=== PATIENT | female | born 1935 | race African-American/Black ===

== ENCOUNTER 2018-08-16 08:31 | Inpatient (IN) | payer OTHER ==
[~2018-08-16] VITALS: Ht 152.4 cm; Wt 46.9 kg
[2018-08-16 08:34] VITALS: BP 146/61
[2018-08-16 09:13] LABS: HEMATOCRIT 28.5 % (37.0-47.0); HEMOGLOBIN 8.4 gm/dL (12.0-15.0); MCH 18.3 pg (26.0-34.0); MCHC 29.4 g/dL (28.0-37.0); MCV 62.1 fL (80.0-100.0); PLATELET COUNT 288 thou/uL (150-400); RBC 4.59 mil/uL (4.20-5.00); RDW 19.1 % (10.5-14.5); WBC 14.6 thou/uL (4.0-11.0)
[2018-08-16 09:16] LABS: URINE CLARITY CLEAR; URINE COLOR DK YELLOW; URINE GLUCOSE-RANDOM* NEGATIVE (Negative); URINE KETONES NEGATIVE (Negative); URINE PROTEIN (DIPSTICK) TRACE (Negative); URINE SPECIFIC GRAVITY 1.025 (1.005-1.035)
[2018-08-16 09:17] LABS: ICTOTEST (BILI CONFIRMATORY) Negative (Negative); URINE BILIRUBIN NEGATIVE (Negative); URINE BLOOD NEGATIVE (Negative); URINE LEUKOCYTES NEGATIVE (Negative); URINE NITRITE NEGATIVE (Negative)
[2018-08-16 09:18] LABS: CALCIUM 9.2 mg/dL (8.5-10.1); POTASSIUM 4.4 mmol/L (3.5-5.1)
[2018-08-16 09:23] LABS: ALBUMIN 1.9 g/dL (3.4-5.0); TOTAL BILIRUBIN 1.2 mg/dL (<0.1-1.0); TOTAL PROTEIN 6.5 g/dL (6.4-8.2)
--- NOTE | 2018-08-16 09:23 | NUR ---
LAB CALLED AND REPORTED LACTATE CRACKED, LAB CALLED TO REDRAW, PT HAS LITTLE VEINS AND SLOW DRAW
[2018-08-16] MEDS ORDERED: AMLODIPINE BESY10 MG PO (09:31)
[2018-08-16] MEDS ORDERED: LISINOPRIL20 MG PO (09:31)
[2018-08-16] MEDS ORDERED: XALATAN2.5 ML OPHTHALMIC (09:32)
[2018-08-16] MEDS ORDERED: IRON325 M1 PO (09:33)
[2018-08-16] MEDS ORDERED: TIMOLOL MALEATE5 M1 OPHTHALMIC (09:33)
[2018-08-16] MEDS ORDERED: ATENOLOL 50MG T50 M1 PO (09:33)
[2018-08-16] MEDS ORDERED: ERGOCALCIF50000 UNIT PO (09:34)
[2018-08-16 09:49] LABS: PHOSPHORUS 2.9 mg/dL (2.5-4.9); TROPONIN-I <0.06 ng/mL (<0.06)
[2018-08-16 09:55] LABS: MAGNESIUM 1.7 mg/dL (1.8-2.4)
[2018-08-16 09:59] LABS: ABSOLUTE NEUTROPHILS 13.4 thou/uL (1.4-8.2); ANISOCYTOSIS 1+; POIKILOCYTOSIS SLIGHT
[2018-08-16 10:00] LABS: HYPOCHROMASIA 1+; LARGE PLATELETS OCCASIONAL; MICROCYTES 2+; OVALOCYTES FEW
[2018-08-16 10:24] VITALS: BP 145/71
[2018-08-16 10:45] VITALS: BP 149/72
[2018-08-16 12:12] LABS: % SATURATION 11 % (20-39); IRON 10 ug/dL (50-170); TIBC 94 ug/dL (250-450)
[2018-08-16 13:20] VITALS: BP 156/73
[2018-08-16 19:47] VITALS: BP 153/79
[2018-08-17] VITALS (7 sets, daily range): BP systolic 126–156; BP diastolic 55–80
--- NOTE | 2018-08-17 05:14 | NUR ---
ASSUMED CARE AT 1900, ASSESSMENT COMPLETED. PT DENIED ANY PAIN, REPORTED MILD NAUSEA AFTER FINISHING MOST OF HER BOWEL PREP. HAVING COMPLETELY WATERY STOOL OVERNIGHT. NO RESP. DISTRESS. WAS UNABLE TO MAKE IT TO BSC FOR STOOLS, WAS CLEANED UP MULTIPLE TIMES. NPO SINCE MIDNIGHT FOR UPPER/LOWER GI TODAY. NO OTHER CONCERNS, WILL CONTINUE TO MONITOR.
[2018-08-17 05:49] LABS: BASOPHILS 0.1 % (0.0-2.0); HEMOGLOBIN 6.8 gm/dL (12.0-15.0); LYMPHOCYTES 14.3 % (24.0-44.0)
[2018-08-17 05:51] LABS: ABSOLUTE NEUTROPHILS 10.9 thou/uL (1.4-8.2); EOSINOPHILS 0.2 % (0.0-3.0); HEMATOCRIT 22.8 % (37.0-47.0); MCH 18.8 pg (26.0-34.0); MCHC 29.9 g/dL (28.0-37.0); MONOCYTES 5.3 % (1.0-8.0); PLATELET COUNT 247 thou/uL (150-400); POLYS 80.1 % (36.0-66.0); RBC 3.62 mil/uL (4.20-5.00); RDW 19.6 % (10.5-14.5); WBC 13.6 thou/uL (4.0-11.0)
[2018-08-17 06:02] LABS: ALBUMIN 1.4 g/dL (3.4-5.0); CALCIUM 8.7 mg/dL (8.5-10.1); CREATININE 0.7 mg/dL (0.6-1.0); MAGNESIUM 1.8 mg/dL (1.8-2.4); TOTAL BILIRUBIN 0.7 mg/dL (<0.1-1.0); TOTAL PROTEIN 5.8 g/dL (6.4-8.2)
[2018-08-17 06:03] LABS: POTASSIUM 3.1 mmol/L (3.5-5.1)
--- NOTE | 2018-08-17 07:56 | EKG ---
[address] [place] [address] ELECTROCARDIOGRAM REPORT Name: PETER VARELA Room #: 421-P ADM IN M.R.#: [id number] Admission: 08/16/18 Attend Phys: Kd Mast MD Discharge: Date of : 33 Report #: [id number] THIS REPORT FOR: //name// [facility] ED Test Date: 2018-08-16 Test Time: 09:06:35 Pat Name: PETER VARELA Department: Room: 421 Gender: F Automation Developer: KF : 1935 Requested By: Gilmer Anthony Order Number: [id number] MD: Tevin Hernandez Measurements Intervals Shoshone Rate: 85 P: 69 VA: 121 QRS: 79 QRSD: 80 T: 74 QT: 366 QTc: 436 Interpretive Statements Sinus rhythm Probable anteroseptal infarct, old No previous ECG available for comparison Electronically Signed On 08-17-2018 7:56:05 DRY WALL APPLICATOR by Tevin Hernandez [email or web address] <ELECTRONICALLY SIGNED> By: Tevin Hernandez MD 08/17/18 [phone] 5 Tevin Hernandez MD /RAMBO
[2018-08-17 14:41] LABS: HEMATOCRIT 25.1 % (37.0-47.0); HEMOGLOBIN 7.4 gm/dL (12.0-15.0)
--- NOTE | 2018-08-17 14:41 | NUR ---
ASSESSMENT-PT LIVES AT HOME WITH HER SISTER, SISTER'S DTR AND GRANDDTR. PT SAYS SHE WALKED ON HER OWN AND TOOK HER OWN SHOWER. THEY LIVE IN A 2 STORY HOME. SISTER DOES MOST OF THE HOUSEHOLD THINGS. PT SAYS SHE HAS NOT HAD ANY HH IN THE PAST. ALL [address] AWAITING THERAPY EVALS FOR [facility] HH SERVICES OR POST ACUTE MOST LIKELY. FOLLOWING TO ASSIST WITH DC PLANNING.
--- NOTE | 2018-08-17 15:24 | NUR ---
S/W PT AND HER SISTER ABOUT SKILLED REHAB AND GAVE LIST OF SKILLED FACILITIES. ASKED PT'S SISTER TO CHOSE 2-3 FACILITIES AND LET US KNOW SO WE CAN SEND REFERRALS THEN FAMILY WOULD NEED TO TOUR FACILITIES. FOLLOWING.
--- NOTE | 2018-08-17 20:25 | NUR ---
BLOOD TRANSFUSION STARTED AT 171
--- NOTE | 2018-08-17 22:27 | P ---
[facility] [place] [address] PROCEDURE REPORT Name: PETER VARELA Room #: 421-P ADM IN M.R.#: [id number] Admission: 08/16/18 Attend Phys: Kd Mast MD Discharge: Date of : 34 Report #: [id number] THIS REPORT FOR: //name// CC: [facility] physician/PCP INPATIENT CHART Kd Mast MD DATE OF SERVICE: 08/17/[address] Kd Mast. INDICATIONS FOR PROCEDURE: This patient has severe microcytic hypochromic iron deficiency anemia. EGD and colonoscopy are being performed today to try to evaluate for source of blood loss. PROCEDURE: EGD. Informed consent for this procedure was obtained prior to the administration of any medication. The risks of the procedure, which include but are not limited to bleeding, perforation, infection, complications of sedation and the possibility I could miss something have been explained to the patient. She has indicated her consent by signing. Anesthesia kindly provided deep sedation for the patient for this procedure. DESCRIPTION OF PROCEDURE: The Olympus upper videoscope was introduced through the upper esophageal sphincter and advanced under direct visualization to the third portion of the duodenum. Findings are noted on withdrawal of the scope. The duodenal mucosa appeared normal throughout its entirety. The pyloric channel, there is a nonbleeding white based pyloric channel ulcer present. In the antrum, there were multiple ulcerations, two of them are large, approximately 2 cm in size and somewhat elongated. They are black based with a likely visible vessels that are nonbleeding at the present time. There are multiple other white based smaller ulcers that are also present in the antrum. Biopsies were obtained from the edges of the two larger ulcerations for histopathology and then random biopsies were obtained x 2 from the distal body of the stomach and from the antrum for evaluation for possible Helicobacter pylori infection. These were placed in bottle #2. Retroflex view did not reveal any abnormalities of the body, cardia and fundus of the stomach. The scope was withdrawn into the esophagus. The Z-line is appropriately located at the top of the gastric folds and appears normal. The esophageal mucosa appeared normal throughout its entirety. The scope was withdrawn. The patient was turned for colonoscopy. IMPRESSION: [facility] [address] [place] [address] PROCEDURE REPORT Name: PETER VARELA Room #: 421-P ADM IN M.R.#: [id number] Admission: 08/16/18 Attend Phys: Kd Mast MD Discharge: Date of : 34 Report #: [id number] 1. White based nonbleeding pyloric channel ulcer. 2. Multiple black based and white based antral ulcers as described above, nonbleeding. Biopsies obtained from the two larger ulcers and then random biopsies for H. pylori obtained from the body and the antrum of the stomach. Good hemostasis was noted after all biopsies. 3. Normal esophagus and proximal stomach. RECOMMENDATIONS: To await the biopsy results. We will start the patient on proton pump inhibitors if she is not on them already and will proceed with colonoscopy at this time. Thank you very much once again for allowing me to participate in her care. PROCEDURE: This is an incomplete colonoscopy. Informed consent for this procedure was obtained prior to the administration of any medication. The risks of the procedure, which include bleeding, perforation, infection, complications of sedation and the possibility I could miss something have been explained to the patient, and she has indicated her consent by signing. Anesthesia kindly provided deep sedation for this procedure. Digital rectal exam was done. A palpable mass is thought to be felt on the posterior rectal wall. It is nodular, very firm and indurated. Then, the Olympus colonoscope was introduced through the anal sphincter and only advanced about 10 cm. The rectum unfortunately is full of black tarry stool and despite my attempts to try to clear the rectum of stool, it was impossible because it is so tarry in consistency. I could not even see the posterior rectal wall to determine if there is a tumor or mass there, so the scope was withdrawn. The patient went to the recovery area in stable condition. She tolerated the procedure well. IMPRESSION: 1. Incomplete exam due to poor colonoscopy prep. 2. Possible palpable mass on the posterior wall of the rectum as described above. RECOMMENDATIONS: To give her GoLYTELY prep tonight and then enema and will reschedule her for colonoscopy tomorrow. Dr. Ornelas will be doing the procedure at that time. N.p.o. after midnight. [address] [address] PROCEDURE REPORT Name: PETER VARELA Room #: 421-P [facility] IN M.R.#: [id number] Admission: 08/16/18 Attend Phys: Kd Mast MD Discharge: Date of : 34 Report #: [id number] Thank you very much once again for allowing me to participate in her care, Dr. Mast. <ELECTRONICALLY SIGNED> By: Lashonda Jordan DO 08/17/18 2227 1342 1545 Lashonda Jordan DO /nt
[2018-08-17 22:29] LABS: HEMATOCRIT 35.6 % (37.0-47.0)
[2018-08-17 22:38] LABS: HEMOGLOBIN 10.7 gm/dL (12.0-15.0)
[2018-08-18 04:07] VITALS: BP 137/74
--- NOTE | 2018-08-18 05:48 | NUR ---
ASSUMED CARE AT 1900, ASSESSMENT COMPLETED. PT DENIES PAIN OR SOB. REPORTS SLIGHT NAUSEA R/T FULLNESS FROM DRINKING GOLYTELY PREP. BY MIDNIGHT HAD DRANK ABOUT HALF THE JUG OF PREP, BUT KEPT FALLING ASLEEP AND WOULD ONLY DRINK ABOUT 2 CUPS AT A TIME. SHE HAD MULTIPLE LARGE, LIQUID STOOLS OVERNIGHT, TWO REQUIRING LINEN CHANGES. ABOUT 0400, DIGITALLY REMOVED MULITPLE, SMALL BALLS OF STOOL FROM RECTUM; PT THEN HAD A SMALL AMOUNT OF SOFT/UNFORMED STOOL IN BSC. ENCOURAGING PT TO FINISH THE REMAINDER OF PREP IN A 2 HOUR TIME FRAME, BUT UNLIKELY THAT SHE WILL BE CLEANED OUT FOR THE COLONOSCOPY TODAY. SHE HAS NOT BEEN CALLING TO GET UP TO BSC; WHEN ASKED, SHE'LL SAY "I WAS GOING TO CALL YOU, BUT THE SENSATION PASSED." SHE'LL HAVE ALREADY BEEN INCONT IN THE BED, REQUIRES STAFF ENCOURAGEMENT TO GET UP. BLOOD TRANSFUSION FINISHED ABOUT 2100, NO COMPLICATIONS NOTED. RIGHT AC IV INFILTRATED, WRECKING CAR DRIVER STARTED A NEW IV IN THE RIGHT CLAVICLE AREA; VEINS ARE VERY SMALL AND FRAGILE, WOULD BENEFIT FROM A MIDLINE OR PICC. NO OTHER CONCERNS, WILL CONTINUE TO MONITOR.
[2018-08-18 06:40] LABS: HEMATOCRIT 33.7 % (37.0-47.0); HEMOGLOBIN 10.3 gm/dL (12.0-15.0)
[2018-08-18 07:20] LABS: FOLIC ACID 2.7 ng/mL (8.6-58.9)
--- NOTE | 2018-08-18 09:58 | NUR ---
ASSUMED CARE THIS AM AT 0700, SHIFT ASSESSMENT DONE, NPO SINCE LAST NIGHT FOR A COLONOSCPY. PATIENT WAS NOT ABLE TO COMPLETE BOWEL PREP WELL. ACCORDING TO THE NIGHT NURSE, PATIENT TOOK LAST DOSE OF BOWEL PREP SOLUTION AT 0500 AM. LAST TIME SHE HAD A BOWEL MOVEMENT WAS THIS AM AT 0715. RESTING IN BED NOW. FAMILY AT BEDSIDE. VSS. MEDS HELD PATIENT IS NPO. WILL CONTINUE TO ASSESS AND ASSIST WITH ADLs NEEDED.
--- NOTE | 2018-08-18 11:29 | NUR ---
ORDER RECEIVED FOR TAP WATER ENEMA. ADMINISTERED TIMES ONE, WITH GODD RESULTS. PATIENT WENT DWON FOR SCOPE AT 1110. FAMILY WITH PATIENT.
[2018-08-18 14:11] LABS: HEMATOCRIT 36.9 % (37.0-47.0); HEMOGLOBIN 11.2 gm/dL (12.0-15.0)
--- NOTE | 2018-08-18 14:59 | NUR ---
[facility] IS REVIEWING PT'[S INFO FOR POSSIBLE ADMISSION. DTR AND GRANDDTR TO REVIEW SKILLED FACILITY LIST TOO IN CASE PT NOT A CANIDATE FOR [facility]. PT COMPLETED HER COLONOSCOPY TODAY. FOLLOWING.
--- NOTE | 2018-08-18 16:06 | NUR ---
[facility] CONSULT RECEIVED 08/18/18 AND CALE LAWSON ASSESSED PATIENT. PATIENT MAY BENEFIT FROM AN ACUTE INPATIENT REHAB UNIT STAY. SEE NEURO OPHTHALMOLOGIST'S CONSULT FOR DETAILS. SHOULD PATIENT DEMONSTRATE MEDICAL STABILITY AND BE READY FOR DISCHARGE TO ACUTE INPATIENT REHAB UNIT ON 08/19/18 OR 08/20/18, PLEASE PHONE FIBER TECHNOLOGISTDARREN PRETTY AT [phone].
--- NOTE | 2018-08-18 16:12 | NUR ---
TRANSFER ORDERS RECEIVED FOR [facility]. REPORT CALLED TO [facility], PATIENT HAS BEEN TRANSPORTED WITH NURSING STAFF TO ROOM 224.
[2018-08-18 16:25] VITALS: BP 129/60
--- NOTE | 2018-08-18 17:08 | NUR ---
RECEIVED PT FROM . PT RESTING IN BED. AWAKE,ALERT/ORIENTED X4. DENIES PAIN/NAUSEA AT THIS TIME. IV INFUSING TO RIGHT CLAVICLE AREA NS@80. NO OTHER CONCERNS AT THIS TIME. WILL CONTINUE WITH CURRENT PLAN OF CARE.
[2018-08-18 19:48] VITALS: BP 120/59
[2018-08-18 22:27] LABS: HEMATOCRIT 35.4 % (37.0-47.0); HEMOGLOBIN 10.4 gm/dL (12.0-15.0)
--- NOTE | 2018-08-19 02:52 | NUR ---
ASSUMED CARE OF PATIENT AT 1899. VSS. ASSESSMENT COMPLETED AT 2049 AND IS DOCUMENTED. PT FAMILY IN ROOM VISITING AT BEGINNING OF SHIFT. PT APPEARS TO BE IN GOOD MOOD WHILE FAMILY IS PRESENT. PT A&O X3-4 WITH PERIODS OF FORGETFULNESS NOTED. RIGHT SUBCLAVIAN PIV PATENT WITH NS RUNNING AT 125 ML/HR. PT CURRENTLY SLEEPING SOUNDLY IN NO ACUTE DISTRESS. ABLE TO CALL OUT APPROPRIATELY. CALL LIGHT WITHIN REACH. BED LOCKED AND IN LOWEST POSITION. WCTM.
[2018-08-19 07:40] VITALS: BP 120/55
[2018-08-19 19:27] VITALS: BP 112/54
--- NOTE | 2018-08-19 19:59 | NUR ---
ASSUMED CARE OF PATIENT AT 0715, PATIENT ALERT WITH CONFUSION. PATIENT UP WITH SBA. PATIENT DENIES PAIN THIS SHIFT. PATIENT HAS SMALL AMT OF BLOOD ON PADDING, THIS RN NOTIFIED DR PEREZ, NO ORDERS RECEIVED, PATIENT HAS POSSIBLE RECTAL MASS. PATIENT HAS RIGHT SHOULDER IV WITH NS AR 125CC/HR. DR PEREZ HERE TO SEE PATIENT, RECEIVED ORDER TO D/C IV FLUIDS AND ENCOURAGE PATIENT TO DRINK FLUIDS THROUGHOUT THE DAY. ORDER FOR CT SCAN OF CHEST WITH CONTRAST. IV TEAM CALLED TO ASSIST WITH IV RIGHT UPPER ARM 20G FOR CT SCAN, PAIENT WAS NPO AROUND LUNCH TIME FOR CT SCAN OF CHEST. PATIENT BLIND IN RIGHT EYE. PATIENT SIT UP IN CHAIR MOST OF THE DAY, PER DR PEREZ'S ORDERS. WILL CONTINUE TO MONITOR.
[2018-08-19 21:42] VITALS: BP 131/73
--- NOTE | 2018-08-20 03:34 | NUR ---
ASSUMED CARE OF PATIENT AT 1899. VSS. ASSESSMENT COMPLETED AT 2044 AND IS DOCUMENTED. PT HAD CT OF CHEST W/ CONTRAST TODAY. WHILE AT CT, NEW PIV PLACED IN RIGHT UPPER ARM. RIGHT UPPER ARM AND RIGHT CLAVICULAR PIV PATENT AND SALINE LOCKED. HS LISINOPRIL HELP D/T BP: 112/54, HR: 68 @ 192. RECHECKED AT 2141, BP: 131/73, HR: 68. PT IS ALERT TO SELF ONLY TONIGHT. INCONTINENT EPISODE X1. AMBULATED WITH WALKER TO BATHROOM ONCE. URINE DARK YELLOW. PT FORGETS TO CALL OUT FOR ASSISTANCE. PT CURRENTLY SLEEPING IN BED IN NO ACUTE DISTRESS. CALL LIGHT WITHIN REACH. BED LOCKED AND IN LOWEST POSITION. WCTM.
[2018-08-20 07:53] VITALS: BP 124/56
--- NOTE | 2018-08-20 11:21 | NUR ---
ASSUMED CARE OF PATIENT THIS MORNING. PATIENT IS ALERT AND ORIENTED X 2-3, WITH SOME FORGETFULNESS. SHE IS UP WITH 1 ASSIST WITH HER WALKER. SHE HAS TO BE RE-INSTRUCTED ON PROPER WALKER USAGE WHEN AMBULATING SHE EXPERIENCES UNSTEADINESS AND WEAKNESS WITH AMBULATION. PATIENT IS BLIND IN HER RIGHT EYE. MEALS ARE SETUP FOR PATIENT AND ITEMS ARE KEPT IN CLOSE REACH. PATIENT'S LUNG SOUNDS WERE CLEAR AND SLIGHTLY DIMINISHED. PATIENT CAN BE INCONTINENT OF BOWEL AND BLADDER AT TIMES. ALL OF HER BLOOD PRESSURE MEDICATIONS WERE HELD THIS MORNING, BLOOD PRESSURE WAS ON THE LOWER SIDE. SHE IS ON ROOM AIR. SHE HAS A RIGHT PERIPHERAL IN HER CLAVICLE AND A RIGHT UPPERARM BOTH IV SITES ARE SALINE LOCKED. PATIENT IS CURRENTLY LAYING IN BED. CALL LIGHT WITHIN REACH. FALL PRECAUTIONS IN PLACE.
[2018-08-20 19:37] VITALS: BP 144/51
--- NOTE | 2018-08-21 02:55 | NUR ---
ASSUMED CARE OF PATIENT AT 1900. VSS. ASSESSMENT COMPLETED AT 2020 AND IS DOCUMENTED. PT A&O X4 AT BEGINNING OF SHIFT, BUT NEEDED REORIENTED THROUGHOUT THE NIGHT. SBA X1 WITH WALKER. PT NEEDS REGULAR EDUCATION TO MAINTAIN SAFETY WHILE TRANSFERRING AND AMBULATING. RIGHT CLAVICLE AND RIGHT UPPER ARM PIV PATENT AND SALINE LOCKED. LBM: 08/17/18. ABD SOFT AND NONTENDER. PT HAS POOR APPETITE. PT IS BOTH CONTINENT AND INCONTINENT AT TIMES. PT CURRENTLY SLEEPING SOUNDLY IN BED IN NO ACUTE DISTRESS. PT FORGETS TO CALL OUT WHEN NEEDING ASSISTANCE. CALL LIGHT WITHIN REACH. BED ALARM ON AND 3 SIDERAILS UP. BED LOCKED AND IN LOWEST POSITION. WCTM.
[2018-08-21 08:14] VITALS: BP 135/66
--- NOTE | 2018-08-21 10:05 | NUR ---
MADELEINE reviewed chart and spoke with nursing. Pt [facility] and is progressing towards goals for discharge. MADELEINE discussed case with therapy mgr, who states that [facility] is able to accept pt when medically stable. MADELEINE met with pt at bedside, who is agreeable with going to [facility]. MADELEINE left voice message for pt's dtr, Joann ([phone]) to notify of [facility] acceptance. MADELEINE notified pt's attending physician. MADELEINE is following to assist as needed with discharge planning.
--- NOTE | 2018-08-21 14:22 | NUR ---
ASSUMED CARE OF PATIENT THIS MORNING. PATIENT IS ALERT AND ORIENTED X 2-3/FORGETFUL. SHE IS UP WITH 1 ASSIST/WALKER. SHE CAN BE UNSTEADY. PATIENT DOES NOT COMPLAIN OF ANY PAIN OR DISCOMFORT. PATIENT HAS CLEAR, DIMINISHED BREATH SOUNDS. SHE CAN BE CONTINENT/INCONTINENT AT TIMES. PATIENTS BP MEDICATION DOSAGES WERE LOWERED BY THE PHYSICIAN. PATIENT IS CURRENTLY SITTING IN CHAIR WITH CHAIR ALARM ON, CALL LIGHT AND BELONGINGS WITHIN REACH.
--- NOTE | 2018-08-21 16:10 | PATH ---
[facility] [place] [place] [address] PATHOLOGY RPT PROCEDURE Name: JOAN VARELA Room #: 224-P ADM IN M.R.#: [id number] Admission: 08/16/18 Date of : 34 Discharge: Report #: [id number] Path Case #: [id number] [facility] Accession Number: [id number] . 01 Material submitted: . PART A: POLYP AT ASCENDING COLON PART B: POLYP AT CECUM PART C: POLYP AT SIGMOID COLON X 2 . 01 Clinical history: . Pre-OP DX: Anemia, weight loss Post-OP DX: Colon polyps . 02 Diagnosis: A. Polyp at ascending colon, endoscopic biopsy: - Tubular adenoma. - Negative for high-grade dysplasia. . B. Polyp at cecum, endoscopic biopsy: - Tubular adenoma. - Negative for high-grade dysplasia. . C. Polyp x2, at sigmoid, endoscopic biopsy: - Tubular adenoma identified in multiple fragments. - Negative for high-grade dysplasia. . (IUV:bar; 08/21/2018) MBR/08/21/2018 . 02 Electronically signed: . Miroslava Payton MD, Pathologist NPI- [id number] . 01 Gross description: . A. Received in formalin labeled "Joan Varela, polyp at ascending colon," are 3 segments of ramos soft tissue measuring 0.9 x 0.6 x 0.1 cm in aggregate dimensions and ranging from 0.2 to 0.5 cm in maximum dimension. The specimen is submitted entirely in cassette A1. . B. Received in formalin labeled "Joan Varela, polyp at cecum," is a single segment of ramos soft tissue measuring 0.5 cm in maximum dimension. The specimen is entirely submitted in cassette B1. . C. Received in formalin labeled "Joan Varela, polyp at sigmoid colon x2," are 3 segments of ramos soft tissue measuring 0.6 x 0.6 x 0.2 cm in aggregate dimensions and ranging from 0.2 to 0.3 cm in maximum dimension. The specimen is submitted entirely in cassette C1. [address] [address] PATHOLOGY RPT PROCEDURE Name: JOAN VARELA Room #: 224-P [facility] IN M.R.#: [id number] Admission: 08/16/18 Date of : 34 Discharge: Report #: [id number] Path Case #: [id number] (TSD; 08/18/2018) TOB/TOB . 02 Pathologist provided ICD-10: D12.2, D12.0, D12.5 . 02 CPT . 452307, 376349, 446462 Specimen Comment: A courtesy copy of this report has been sent to Specimen Comment: [phone], . Specimen Comment: Report sent to and Performed at: [address], [place] [id number] MD Tai Isabel MD Phone: [phone] Performed at: [address] [id number] MD Miroslava Payton MD Phone: [phone]
--- NOTE | 2018-08-21 16:14 | NUR ---
I AGREE WITH NURSING ASSESSMENT DONE BY BERTRAM/SHELLY.
[2018-08-21 19:03] VITALS: BP 140/70
--- NOTE | 2018-08-22 05:12 | NUR ---
Pt A/Ox3 with forgetfulness noted but able to make needs known,up with AX1/GB.Denies pain on assessment.VSS.Fall precautions in place,bed alarm incident response analyst light/personal items within reach. Pt might be getting thoracentisis done,dtr notified awaiting updates. Resting quietly with eyes closed,no distress.
[2018-08-22 06:40] LABS: INR 1.1; PROTIME 11.5 Seconds (9.3-11.4)
[2018-08-22 07:45] VITALS: BP 128/54
[2018-08-22 09:01] VITALS: BP 128/54
[2018-08-22] MEDS ORDERED: BENAZEPRIL HCL5 MG PO (09:17)
[2018-08-22] MEDS ORDERED: CARAFATE 1 GM TA1 G1 PO (09:17)
[2018-08-22] MEDS ORDERED: PROTONIX40 M1 PO (09:18)
--- NOTE | 2018-08-22 10:28 | NUR ---
PATIENT CARE WAS ASSUMED AT 0715.PATIENT IS ALERT AND ORIENTED X4 WITH SOME CONFUSION.PATIENT HAS FAMILY AT BEDSIDE.NO COMPLAINS OF PAIN AT THIS TIME.PT IS RESTING IN BED.VITALS ARE STABLE.IV IS PATENT AND SALINE LOCKED.PT CAN TRANSFER WITH X1 ASSIST.PT IS INCON. OF BOWEL AND BLADDER, AND IS CURRENTLY WEARING BRIEF.PT IS SCHEDULE TO HAVE THORACENTESIS TODAY.WILL CONTINUE TO MONITOR.PATIENT HAS CALL LIGHT, PHONE, AND PERSONAL BELONGINGS WITHIN REACH.
[2018-08-22 10:57] LABS: CLARITY CLEAR; COLOR YELLOW; SOURCE LEFT CHEST; TOTAL VOLUME 60 mL
[2018-08-22 11:08] LABS: BF NUCLEATED CELLS 54; BF RBC 150
--- NOTE | 2018-08-22 12:07 | PATH ---
[facility] [address] [place] [address] PATHOLOGY RPT PROCEDURE Name: JOAN VARELA Room #: 224-P ADM IN M.R.#: [id number] Admission: 08/16/18 Date of : 34 Discharge: Report #: [id number] Path Case #: [id number] [facility] Accession Number: [id number] . 01 Material submitted: . PART A: BX OF GASTRIC ULCER PART B: GASTRIC BX . 01 Clinical history: . Anemia Gastric ulcer A: Rule out malignancy B: Rule out H. pylori . 02 Diagnosis: A. Gastric mucosa, gastric ulcer edge rule out malignancy, endoscopic biopsy: - Helicobacter pylori-induced marked active gastritis. - Negative for intestinal metaplasia or atrophy. - No definite lymphoepithelial lesions identified. - Negative for dysplasia. - Well-controlled Helicobacter pylori immunohistochemical stain showing numerous organisms. . B. Gastric mucosa, gastric rule out H. pylori, endoscopic biopsy: - Helicobacter pylori-induced moderate active gastritis. - Negative for intestinal metaplasia or atrophy. - Properly controlled immunohistochemical stain performed showing moderate number of organisms. . (IUV:wire loop machine operator; 08/21/2018) MBJeffrey/08/21/2018 . 02 Comment: Dr. Evelina Santos has seen field support representative slides of this case and concurs with my diagnosis. (IUV:wire loop machine operator; 08/21/2018) . 02 Electronically signed: . Miroslava Payton MD, Pathologist NPI- [id number] . 01 Gross description: . A. The specimen is received in formalin, labeled "Joan Varela, BX of gastric ulcer" and consists of 2 fragments of soft ramos tissue measuring 0.4 x 0.3 x 0.2 cm and 0.4 x 0.2 x 0.1 cm. They are entirely submitted in A1. [address] [address] PATHOLOGY RPT PROCEDURE Name: JOAN VARELA Room #: 224-P [facility] IN .R.#: [id number] Admission: 08/16/18 Date of : 33 Discharge: Report #: [id number] Path Case #: [id number] . B. The specimen is received in formalin, labeled "Joan Varela, gastric BX" and consists of 2 fragments of soft ramos tissue measuring 0.4 x 0.2 x 0.1 cm and 0.3 x 0.3 x 0.1 cm. They are entirely submitted in B1. (SDY; 08/18/2018) SYU/SYU . 02 Pathologist provided ICD-10: K29.70, B96.81 . 02 CPT . 462371, 862613, V87514 Specimen Comment: A courtesy copy of this report has been sent to Specimen Comment: [phone], . Specimen Comment: Report sent to and Performed at: [address], [place] [id number] MD Tai Isabel MD Phone: [phone] Performed at: [address] [id number] MD Miroslava Payton MD Phone: [phone]
[2018-08-22 12:55] LABS: BF MACROPHAGE 37; BF NEUTROPHILS 27
--- NOTE | 2018-08-22 13:46 | NUR ---
DISCHARGE NOTE: SW reviewed chart and spoke with nursing and attending physician. Pt is medically stable to d/c to [facility] today. MADELEINE met with pt and niece, Joann, at bedside to discuss discharge plan. Both are aware and agreeable with discharge plan. SW met with pt's niece outside of pt's room to discuss eventual discharge plan. Pt's niece and great niece moved to from [place] in March of 2018. They live in a multi-level home with stairs. Joann states that the lease is up in March of 2019 and at that time, she will move into a one-level home, which would be more convenient for pt and pt's sister. Pt's niece states that having stairs in the home is difficult for pt to navigate. SW discussed need for continued rehab services and possible AL placement if pt is unable to return home with family. SW provided pt's niece with list of AL/SNF facilities for review. Pt has Medicare only. No secondary insurance. SW discussed about having a secondary insurance and/or applying for Medicaid. Pt's niece verbalized understanding. Pt will d/c to [facility] later today. Pt's niece went to tour [facility]. SW confirmed with [facility] rehabilitation coordinator that they are able to accept pt today. No additional SW needs identified at this time, but is available to assist should needs arise.
--- NOTE | 2018-08-22 16:18 | NUR ---
PATIENT WAS DISCHARGED TO GO TO [address] [place] [address] REHAB.PT IS STABLE UPON DISCHARGE.FAMILY IS WITH PATIENT.REPORT WAS GIVEN TO NURSE.PAPERWORK WAS GIVEN TO TRANSPORT TO GIVE TO NURSE.PT HAS BOTH IV INPLACE.PT WAS TAKEN VIA W/C WITH PERSONAL BELONGINGS.
[2018-08-22] MEDS ORDERED: LISINOPRIL20 MG PO (17:20)
[2018-08-22] MEDS ORDERED: IRON325 PO (17:20)
[2018-08-22] MEDS ORDERED: VITAMIN D250000 UNIT PO (17:23)
--- NOTE | 2018-08-22 19:50 | HC ---
[facility] [place] [address] CONSULTATION Name: PETER VARELA Room #: 224-P [facility] IN [place].#: [id number] Admission: 08/16/18 Attend Phys: Kd Mast MD Discharge: 08/22/18 Date of : 34 Report #: [id number] THIS REPORT FOR: //name// CC: [facility] physician/PCP Kd Mast PULMONARY CONSULTATION REFERRING PHYSICIAN: Kd Mast M.D. REASON FOR REFERRAL: Small lung nodules. HISTORY OF PRESENT ILLNESS: The patient is an 82-year-old female who presents to the Emergency Room on 08/16/2018 with anorexia, cachexia and weight loss. CT chest revealed lung nodules. A pulmonary consultation was requested. The patient has resided in [place] for some time. She recently moved to the [place] area about 5 months ago to be with her family. She states that for the past 3 months or so, she has had trouble with poor appetite. She has been losing weight gradually. Otherwise, she denies any fever, night sweats or chills, chest pain or productive cough. The patient is a lifetime nonsmoker. CT chest was reviewed, showing small lung nodules; mediastinum was unremarkable. Small bilateral pleural effusion, greater in the left than the right. The left pleural effusion may have some component of loculation. No infiltrates seen. She was also recently seen by GI during this hospitalization. Endoscopy was performed. Polyps were biopsied. Biopsy showed tubular adenoma, negative for high-grade dysplasia. She was also found to have pyloric ulcers that were nonbleeding. PAST MEDICAL HISTORY: Notable for hypertension, glaucoma and left leg numbness due to herniated disk. PAST SURGICAL HISTORY: Negative. ALLERGIES: None to medications. HOME MEDICATIONS: Amlodipine, lisinopril, Xalatan eyedrops, iron supplements, Tenormin and ergocalciferol. FAMILY HISTORY: Noncontributory. SOCIAL HISTORY: She has never smoked. Denies any alcohol use. REVIEW OF SYSTEMS: As mentioned above, otherwise 10-point system review [facility] [address] [place] [address] CONSULTATION Name: PETER VARELA Room #: 224-P [facility] IN M.R.#: [id number] Admission: 08/16/18 Attend Phys: Kd Mast MD Discharge: 08/22/18 Date of : 34 Report #: [id number]. PHYSICAL EXAMINATION: GENERAL: On examination, she is awake, alert, in no distress. VITAL SIGNS: Temperature is 98 degrees Fahrenheit, pulse is 80, respiratory rate is 18, blood pressure 144/51 mmHg and saturation 99%. HEENT: Normocephalic, atraumatic. NECK: Supple, without any lymphadenopathy or thyromegaly. CHEST: Breath sounds are good bilaterally, without any rales or wheezes. CARDIOVASCULAR: Normal S1 and S2. There are no murmurs or gallops. There is no JVD. There is no carotid bruit. Pulses are 2+/4+ bilaterally. ABDOMEN: Soft, nontender. No organomegaly or masses felt. GENITOURINARY: Deferred. RECTAL: Deferred. EXTREMITIES: There is no edema, cyanosis or clubbing. MUSCULOSKELETAL: Notable for moderate muscle atrophy. LABORATORY DATA: CT chest as mentioned above, showing scattered nodules, no consolidation. Small bilateral pleural effusion. No lung mass. Mediastinum is normal. The left pleural effusion is mild, greater in the left. Questionable loculation. Electrolytes are grossly unremarkable, except for low potassium at 3.1. Creatinine is normal. Liver enzymes are mildly abnormal, with elevated alkaline phosphatase. WBC is 13,600 and hemoglobin was 6.8, currently is 10.4, with microcytic hypochromic anemia. Albumin 1.4. IMPRESSION AND PLAN: 1. Small lung nodules in this 82-year-old female. She has a history of iron-deficiency anemia. She has colonic polyps, felt to be nonmalignant. She has had poor appetite over the last 3 months, having lost weight. The etiology of the lung nodules is unclear, but suspect granulomatous process. Primary bronchogenic carcinoma is felt to be less likely. She will need a followup chest CT. In terms of her pleural effusion, the left side appears to be mild, perhaps enough for diagnostic thoracentesis to workup her underlying weight loss. 2. Cachexia, anorexia and unexplained weight loss, currently undergoing workup. As mentioned above, I do not think small lung nodules are the cause for her current weight loss at this time. 3. Cognitive impairment, possible encephalopathy due to metabolic and toxic reasons. 4. Hypertension. 5. Anemia, appears to be hypochromic microcytic. GI has been following. 6. Colonic polyp, status post biopsy. There does not appear to be evidence of high-grade dysplasia. [address] [place] [address] CONSULTATION Name: PETER VARELA Room #: 224-P [facility] IN M.R.#: [id number] Admission: 08/16/18 Attend Phys: Kd Mast MD Discharge: 08/22/18 Date of : 34 Report #: [id number] RECOMMENDATIONS: We will ask Interventional Radiology for possibility of diagnostic thoracentesis on the left. In regards to small lung nodules, I recommend followup chest CT in approximately 6-8 weeks. DVT and GI prophylaxis recommended. Thank you for this consultation. <ELECTRONICALLY SIGNED> By: Haresh Day MD 08/22/18 1950 [id number] [id number] Haresh Day MD /nt
--- NOTE | 2018-08-23 11:12 | P ---
[facility] [place] [address] PROCEDURE REPORT Name: PETER VARELA Room #: 224-P [facility] IN M.R.#: [id number] Admission: 08/16/18 Attend Phys: Kd Mast MD Discharge: 08/22/18 Date of : 34 Report #: [id number] THIS REPORT FOR: //name// CC: [facility] physician/PCP KD Mast DATE OF SERVICE: 08/18/2018 PROCEDURE PERFORMED: Colonoscopy with biopsies. HISTORY OF PRESENT ILLNESS: The patient is an 82-year-old female with generalized fatigue and significant anemia on admission. She underwent an EGD by my partner, Dr. Jordan, which showed multiple nonbleeding antral and pyloric ulcers with nonbleeding visible vessels. She is started on PPI therapy. She also received a unit of packed cells. A colonoscopy was attempted yesterday; however, the prep was poor; therefore, she was reprepped last night and plan is for colonoscopy today. No previous history of colonoscopy apparently. No family history of colon cancer. The patient denies any pain. Her hemoglobin today is 10.3. DESCRIPTION OF PROCEDURE: The risks and benefits of the procedure were explained to the patient, those risks including but not limited to bleeding, perforation, and the risk of sedation. She understood these risks and gave informed consent. Sedation was given using propofol per anesthesia. Next, a digital rectal exam was initially performed, which was normal. Next, using a standard Olympus colonoscope, the scope was placed in the patient's anus and advanced under direct vision to the cecum. The overall prep was excellent. In the cecum, there was a 3 mm sessile polyp. This was removed with cold forceps, otherwise normal. The ileocecal valve was normal. The terminal ileum was intubated and normal in appearance. In the ascending colon, there was a 5 mm sessile polyp. This was also removed with cold forceps, otherwise normal. The transverse and descending colon were normal. A few scattered diverticula were noted in the sigmoid colon, no evidence of inflammation. Two polyps were also noted in the sigmoid colon at 6 and 3 mm in size, both removed with cold forceps. The rectal mucosa was normal. On retroflexion, small nonbleeding internal hemorrhoids were noted. Scope was then withdrawn and the procedure terminated. The patient tolerated the procedure well. IMPRESSION: 1. Small colonic polyps. 2. Sigmoid diverticulosis. 3. Internal hemorrhoids. 4. Otherwise, normal colonoscopy. RECOMMENDATIONS: [address] [address] PROCEDURE REPORT Name: PETER VARELA Room #: 224-P [facility] IN M.R.#: [id number] Admission: 08/16/18 Attend Phys: Kd Mast MD Discharge: 08/22/18 Date of : 34 Report #: [id number] 1. Await biopsy results. 2. Continue PPI therapy and monitoring hemoglobin. Her hemoglobin at this point has been stable. Thank you for allowing me to participate in her care. <ELECTRONICALLY SIGNED> By: Cain Ornelas MD 08/23/18 1112 1210 11 Cain Ornelas MD /nt
[2018-08-23 13:08] LABS: BODY FLUID ALBUMIN 0.6 g/dL (()); BODY FLUID AMYLASE 9 U/L (()); BODY FLUID GLUCOSE 155 mg/dL (()); BODY FLUID LDH 76 IU/L (()); BODY FLUID PROTEIN 1.6 g/dL (())
--- NOTE | 2018-08-24 15:07 | PATH ---
[facility] [address] [place] [address] PATHOLOGY RPT PROCEDURE Name: PETER VARELA Room #: 224-P DIS IN M.R.#: [id number] Admission: 08/16/18 Date of : 34 Discharge: 08/22/18 Report #: [id number] Path Case #: [id number] Note [facility] Accession Number: [id number] TESTS RESULT FLAG UNITS REF RANGE LAB Clinician Provided Cytology Information No. of containers..01 Other (Miscellaneous) Source: PLEURAL FLUID DIAGNOSIS: 02 PLEURAL FLUID NEGATIVE FOR MALIGNANT CELLS. REACTIVE MESOTHELIAL CELLS ARE PRESENT. THIS INTERPRETATION INCLUDES EVALUATION OF A CELL BLOCK. Signed out by: Miroslava Payton MD, Pathologist NPI- [id number] Performed by: Amber Oh, Coal Handler ([facility]) Gross description: 01 30ML, YELLOW, CLOUDY /LCS FLAG LEGEND: L-Low Normal,H-High Normal,LL-Alert Low,HH-Alert High <-Panic Low,>-Panic High,A-Abnormal,AA-Critical Abnormal Performed at: [address] [place] [address] Tai Isabel MD, [address] [address] Miroslava Payton MD, Specimen Comment: A courtesy copy of this report has been sent to Specimen Comment: [phone]. Specimen Comment: Report sent to Specimen Comment: A duplicate report has been generated due to demographic updates. Performed at: [address], [place], [place] [id number] MD Tai Isabel MD Phone: [phone]
== END 2018-08-22 16:21 | DRG 377 ==
LOC: ER 08:31 → 4E 10:17 → SICU 10:17 → EROBS 10:17 → 4E 10:54 → SICU 08-18 16:21 → ENTRNSPT 08-22 15:23 → SICU 08-22 16:21
PROVIDERS: Emergency Medicine; Internal Medicine Gastroenterology; Internal Medicine Pulmonary Disease; Nurse Practitioner; Nurse Practitioner Family; ADMIT Internal Medicine
PROC: 30233N1 Transfusion of Nonautologous Red Blood Cells into Peripheral Vein, Percutaneous Approach (ICD-10-PCS; principal; 2018-08-17)
PROC: 0DB68ZX Excision of Stomach, Via Natural or Artificial Opening Endoscopic, Diagnostic (ICD-10-PCS; principal; 2018-08-17)
PROC: 0DJD8ZZ Inspection of Lower Intestinal Tract, Via Natural or Artificial Opening Endoscopic (ICD-10-PCS; principal; 2018-08-17)
PROC: 0DB78ZX Excision of Stomach, Pylorus, Via Natural or Artificial Opening Endoscopic, Diagnostic (ICD-10-PCS; principal; 2018-08-17)
PROC: 0DBK8ZZ Excision of Ascending Colon, Via Natural or Artificial Opening Endoscopic (ICD-10-PCS; 2018-08-18)
PROC: 0DBN8ZZ Excision of Sigmoid Colon, Via Natural or Artificial Opening Endoscopic (ICD-10-PCS; 2018-08-18)
PROC: 0DBH8ZZ Excision of Cecum, Via Natural or Artificial Opening Endoscopic (ICD-10-PCS; 2018-08-18)
PROC: 0W9B3ZZ Drainage of Left Pleural Cavity, Percutaneous Approach (ICD-10-PCS; 2018-08-22)
DX: K25.4 Chronic or unspecified gastric ulcer with hemorrhage (principal); E43 Unspecified severe protein-calorie malnutrition; F05 Delirium due to known physiological condition; J90 Pleural effusion, not elsewhere classified; E86.0 Dehydration; R73.9 Hyperglycemia, unspecified; I10 Essential (primary) hypertension; H40.9 Unspecified glaucoma; R91.8 Other nonspecific abnormal finding of lung field; D50.9 Iron deficiency anemia, unspecified; M62.84 Sarcopenia; D12.2 Benign neoplasm of ascending colon; D12.0 Benign neoplasm of cecum; D12.5 Benign neoplasm of sigmoid colon; F03.90 Unspecified dementia, unspecified severity, without behavioral disturbance, psychotic disturbance, mood disturbance, and anxiety; E87.6 Hypokalemia; F32.9 Major depressive disorder, single episode, unspecified; E53.8 Deficiency of other specified B group vitamins; K57.30 Diverticulosis of large intestine without perforation or abscess without bleeding; E55.9 Vitamin D deficiency, unspecified; K64.8 Other hemorrhoids; Z68.20 Body mass index [BMI] 20.0-20.9, adult; Z87.11 Personal history of peptic ulcer disease; Z79.899 Other long term (current) drug therapy
CPT/HCPCS: 10084; 15002; 62110; 62900; 70005

== ENCOUNTER 2018-08-22 12:35 | Inpatient (IN) | payer OTHER ==
[~2018-08-22] VITALS: Ht 170.2 cm; Wt 51.5 kg
--- NOTE | ~2018-08-22 | HC ---
[facility] [place] [address] CONSULTATION Name: PETER VARELA Room #: 505-P ADM IN M.R.#: [id number] Admission: 08/22/18 Attend Phys: Frank Garcia MD Discharge: Date of : 34 Report #: [id number] THIS REPORT FOR: //name// CC: Frank Garcia [facility] physician/PCP DATE OF SERVICE: 08/28/2018 INTRODUCTION: The patient is an 82-year-old female admitted to [facility] with dehydration, weakness and malnutrition. She has been on rehabilitation unit and is apparently progressed well. PAST MEDICAL HISTORY: With regard to this podiatric consultation is otherwise noncontributory. She denies diabetes, has had no significant issues with her feet. PHYSICAL EXAMINATION: She does have lower extremity edema. Her pedal exam dorsalis pedis, posterior tibial pulses are not palpable due to 2+ pitting edema in both feet and lower legs. Her capillary refill time, however, is within normal limits. Neurologic, she is grossly intact to sensory stimulation including sharp, dull, proprioceptive and vibratory sensations. Her skin and nails are in otherwise good condition; however, the right hallux nail is severely dystrophic, thickened and long owing to past nail bed trauma many years ago. There are no acute findings with regard to this exam. IMPRESSION: Onychodystrophy, post-traumatic right hallux nail. PLAN: The patient's nails were all trimmed. Attention was paid to the right hallux nail, which was aggressively debrided with a combination of manual and mechanical debridement. No underlying pathology was noted following trimming. The patient was advised of her condition and no further treatment was needed. It has been a pleasure having the opportunity of caring for this patient. We are pleased to follow up with her upon request. By: [id number] Alonso Perez DPM /teri
[~2018-08-22 12:35] MED LIST: AMLODIPINE BESY10 MG PO; ATENOLOL 50MG T50 M1 PO; BENAZEPRIL HCL5 MG PO; CARAFATE 1 GM TA1 G1 PO; ERGOCALCIF50000 UNIT PO; IRON325 M1 PO; LISINOPRIL20 MG PO; PROTONIX40 M1 PO; TIMOLOL MALEATE5 M1 OPHTHALMIC; XALATAN2.5 ML OPHTHALMIC
[2018-08-22 16:38] VITALS: BP 156/61
[2018-08-22] MEDS ORDERED: IRON325 PO (17:20)
[2018-08-22] MEDS ORDERED: LISINOPRIL20 MG PO (17:20)
[2018-08-22] MEDS ORDERED: VITAMIN D250000 UNIT PO (17:23)
--- NOTE | 2018-08-22 18:34 | NUR ---
ASSUMED CARE AT 1700, SHIFT ASSESSMENT AND ADMISSION DONE, MED REC DONE. PATIENT ORIENTED TO THE UNIT. VSS. DENIES ANY PAIN, NAUSEA, VOMITING. WILL CONTINUE TO ASSESS AND ASSIST WITH ADLs NEEDED.
[2018-08-22 19:35] VITALS: BP 145/51
--- NOTE | 2018-08-23 01:45 | NUR ---
INFORMED PATIENT OF NEED FOR CARAFATE 4 TIMES A DAY ON AN EMPTY STOMACH. HAS BEEN RESTING WELL AND DENIES NEED TO VOID NOW AND WILL LET US KNOW WHEN SHE DOES. PLEASANT
[2018-08-23 04:13] LABS: CREATININE 0.7 mg/dL (0.6-1.0)
[2018-08-23 04:14] LABS: POTASSIUM 2.6 mmol/L (3.5-5.1)
[2018-08-23 05:46] LABS: HEMATOCRIT 25.7 % (37.0-47.0); MCH 20.7 pg (26.0-34.0); MCHC 31.1 g/dL (28.0-37.0); MCV 66.6 fL (80.0-100.0); RBC 3.85 mil/uL (4.20-5.00); RDW 23.8 % (10.5-14.5)
--- NOTE | 2018-08-23 07:55 | NUR ---
chart review. hai up in room, bedside and physical therapy working with pt. she soft spoken, working with cane and walker. pt is a & o x 3 pleasant with some forgetfulness. " 2 story house with stairs, independent prior to hospital. live with sister, niece and great niece. driving. has cane and walker. thinking about moving when lease is up to 1 level house. stairs are difficult. no home health or rehab in past"/hai and chart. will cont following as needed for dc needs.
[2018-08-23 08:15] VITALS: BP 144/71
[2018-08-23 08:21] LABS: MAGNESIUM 1.6 mg/dL (1.8-2.4)
--- NOTE | 2018-08-23 10:30 | NUR ---
ASSUMED CARES AT 0700. PT AWAKE, ALERT AND ORIENTED *4. DENIES PAIN. POTASSIUM LOW THIS AM, REPLACED WITH 1V AND PO KCL. ALL OTHER VITALS REMAIN STABLE. PT UP WITH 1 PERSON MOD ASSIST, CONTINUES TO HAVE WEAKNESS IN BLE. PT HAD A SKIN TEAR BETWEEN THE SACRAL FOLDS, CLEANED AND ZGUARD APPLIED. Q1H VISUAL CHECKS. CALL LIGHT WITHIN REACH. FALL PRECAUTIONS IN PLACE
[2018-08-23 19:42] VITALS: BP 127/43
--- NOTE | 2018-08-24 03:38 | NUR ---
assumed care at approx 1900 evening 08/23. pt alert and oriented x4, somewhat forgetful at times. pt pleasant and cooperative. pt took hs meds with water tolerating well. pt appears to be sleeping soundly with hourly rounding checks. bed alarm on and call light in reach. will continue to monitor.
[2018-08-24 06:13] LABS: BASOPHILS 0.3 % (0.0-2.0); EOSINOPHILS 0.6 % (0.0-3.0); HEMOGLOBIN 9.5 gm/dL (12.0-15.0); LYMPHOCYTES 14.6 % (24.0-44.0); MCH 20.2 pg (26.0-34.0); MCHC 30.6 g/dL (28.0-37.0); MCV 66.1 fL (80.0-100.0); PLATELET COUNT 252 thou/uL (150-400); POLYS 75.5 % (36.0-66.0); RBC 4.68 mil/uL (4.20-5.00); RDW 24.6 % (10.5-14.5); WBC 13.2 thou/uL (4.0-11.0)
[2018-08-24 06:24] LABS: CALCIUM 8.4 mg/dL (8.5-10.1); CREATININE 0.7 mg/dL (0.6-1.0); MAGNESIUM 1.7 mg/dL (1.8-2.4); POTASSIUM 4.7 mmol/L (3.5-5.1)
[2018-08-24 07:48] VITALS: BP 132/45
[2018-08-24 08:34] LABS: ANISOCYTOSIS 2+; HYPOCHROMASIA 2+; MICROCYTES 3+; PLATELET ESTIMATE NORMAL
--- NOTE | 2018-08-24 14:25 | NUR ---
ASSUMED CARE OF PT AT 0700. PT IS A&OX4. IS ON ROOM AIR. IS STABLE. IS UP WITH 1 ASSIST, GB, WALKER. FALL PRECAUTIONS & HOURLY ROUNDING MAINTAINED. LABS & VITALS REVIEWED. PT HAS BILLAT LE EDEMA. IS CURRENTLY SLEEPING IN BED. CALL LIGHT WITHIN REACH. WILL CONTINUE TO MONITOR.
[2018-08-24 19:43] VITALS: BP 119/56
--- NOTE | 2018-08-25 06:38 | NUR ---
Pt a/o x 4. RA. VSS. Up with assist, gait belt, walker. Slow steady on feet. Denies pain or any other discomfort. No apparent distress noted. Bed alarm on. All other fall precautions maintained. Call light within reach. Will continue to monitor.
[2018-08-25 08:37] VITALS: BP 100/55
--- NOTE | 2018-08-25 10:21 | NUR ---
ASSUMED CARES AT 0700. PT AWAKE, ALERT AND ORIENTED *4. DENIES PAIN. VITALS REMAIN STABLE. BP MEDICATIONS HELD THIS AM R/T SBP <120. PT CONTINUES TO HAVE A SKIN TEAR IN HER SACRAL REGION, CLEANED AND SITE LEFT ENVELOPE SEALER. PT UP WITH 1 PERSON MIN ASSIST, TOLERATED ALL THERAPIES WELL. Q1H VISUAL CHECKS. CALL LIGHT WITHIN REACH. FALL PRECAUTIONS IN PLACE
--- NOTE | 2018-08-25 12:45 | NUR ---
Nutrition: Folate 2.7 low, REC order folate supplementation. Prior orders were 1 mg/daily.
[2018-08-25 20:05] VITALS: BP 149/69
--- NOTE | 2018-08-26 01:55 | NUR ---
PT ALERT AND ORIENTED X 4. AMB TO BR WITH WALKER AND ASSIST X 1 WITHOUT DIFFICULTY. PT DENIES PAIN OR DISCOMFORT. BED ALARM ON FOR SAFETY. PT APPEARS TO BE SLEEPING ON HOURLY ROUNDS.
[2018-08-26 07:00] VITALS: BP 104/55
--- NOTE | 2018-08-26 16:42 | NUR ---
ASSUMED CARES AT 0700. PT AWAKE, ALERT AND ORIENTED X4.REPORT SLEPT OK LAST NIGHT. HAS POOR SIGHT ON RIGHT EYE. EYE DROP GIVEN. C/O DRY MOUTH. B/P 104/55. HR 72. HELD B/P MEDS ORDERED. ENCOURAGED PT TO DRINK MORE FLUID. PT UP TO DINNING, ATE BREAKFAST AND LUNCH. HAS FAIR APPETITE. DENIES PAIN, N/ V. A SKIN TEAR IN HER SACRAL REGION HEALED, PT UP WITH 1 PERSON MIN ASSIST. OFFERED SUPPORTIVE CARE.REASSESSMENT PER CHART. HAS BLE EDEMA 2+. ELEVATE WHILE LAYING DOWN. ROMELIA YOUSSEF ORDERED. NOTIFIED DR. COVINGTON HE SAID HE WILL SEE PT. MEDS GIVEN ONE AT THE TIME WITHOUT DIFFICULTY. PT UP AND TOLERATED ALL THERAPIES WELL, TOOK NAP IN BETWEEN. Q1H VISUAL CHECKS. CALL LIGHT WITHIN REACH. FALL PRECAUTIONS IN PLACE. WILL CONTINUE TO MONITOR.
[2018-08-26 19:54] VITALS: BP 117/53
--- NOTE | 2018-08-27 01:25 | NUR ---
assumed care at approx 1900 evening 08/26. pt alert and awake, pleasant and cooperative. pt with visitors late in evening stayed for a few hours. pt assisted up to toilet with pt incontinent of bm and voided in toilet. pt back to bed now with head of bed elevated. will continue with hourly rounding. bed alarm on and call light in reach. will continue to monitor.
[2018-08-27 07:30] VITALS: BP 108/49
--- NOTE | 2018-08-27 14:14 | NUR ---
ASSUMED CARE AT 0700. PT. ALERT AND ORIENTED X 4. UP IN CHAIR BESIDE BED FOR MEALS. DENIES PAIN. NOTED +2 EDEMA TO LE BILATERALLY. NO IV'S NOTED. INCONTINENT TIMES ONE TODAY. NO PROBLEMS NOTED WITH PATIENT TODAY. SHE DOES NEED ASSISTANCE WHEN OUT OF BED.
[2018-08-27 23:23] VITALS: BP 122/54
--- NOTE | 2018-08-28 02:05 | NUR ---
PT ALERT AND ORIENTED X 4, FORGETFUL. 2+ LE EDEMA BILAT. PT DENIES PAIN OR DISCOMFORT. BED ALARM ON FOR SAFETY. PT APPEARS TO BE SLEEPING ON HOURLY ROUNDS.
[2018-08-28 05:14] LABS: ABSOLUTE NEUTROPHILS 10.1 thou/uL (1.4-8.2); BASOPHILS 0.4 % (0.0-2.0); EOSINOPHILS 0.1 % (0.0-3.0); HEMATOCRIT 23.4 % (37.0-47.0); HEMOGLOBIN 7.2 gm/dL (12.0-15.0); LYMPHOCYTES 10.5 % (24.0-44.0); MCH 20.4 pg (26.0-34.0); MCHC 30.9 g/dL (28.0-37.0); MCV 66.1 fL (80.0-100.0); MONOCYTES 9.7 % (1.0-8.0); PLATELET COUNT 311 thou/uL (150-400); POLYS 79.3 % (36.0-66.0); RBC 3.53 mil/uL (4.20-5.00); RDW 24.4 % (10.5-14.5); WBC 12.8 thou/uL (4.0-11.0)
[2018-08-28 05:24] LABS: CALCIUM 8.2 mg/dL (8.5-10.1); POTASSIUM 3.3 mmol/L (3.5-5.1)
[2018-08-28 07:30] VITALS: BP 121/60
--- NOTE | 2018-08-28 10:19 | NUR ---
ASSUMED CARES AT 0700. PT AWAKE, ALERT AND ORIENTED*4 BUT FORGETFUL. C/O MILD PAIN AROUND HER TAILBONE/SACRAL REGION, REDNESS AND SHEARING NOTED, WOUND CARE CONSULTED AND OPTIFORM APPLIED TO PROVIDE CUSHIONING. PT ENCOURAGE TO SLEEP ON HER SIDE AND CHANGE POSITIONS Q2H AND PRN. VITALS REMAIN STABLE. PT CONTINUES TO HAVE BLE EDEMA (2+), ONETIME ORDER OF LASIX ADMINISTERED. POTASSIUM LOW THIS AM, REPLACED. GI CONSULTED REGARDING LOW HGB, DARK/ RED TINGED STOOLS. ABDOMEN SOFT AND FLAT, BS ACTIVE *4, LAST BM 08/27. PT UP WITH 1 PERSON MIN ASSIST AND TOLERATED WELL. Q1H VISUAL CHECKS. CALL LIGHT WITHIN REACH. FALL PRECAUTIONS IN PLACE
--- NOTE | 2018-08-28 10:45 | NUR ---
WOUND CONSULT; ASSESSMENT COMPLETED. S/S CONSISTANT WITH FRICTION SHEARING TO THE COCCYX. MINIMAL DRAINAGE WITH NO S/S OF INFECTION. PATIENT AMBULATES WITH ASSISTANCE. PT CAN TURN HERSELF IN BED PER STAFF. PATIENT IS MALNURISHED AND IS UNDER THE CARE OF A BENEFITS COUNSELOR. RECOMMENDATIONS; USE BARRIER CREAM ONLY. HEAD OF BED NO HIGHER THAN 30 DEGREES EXVEPT MEALS AND THERAPY. NOTIFY WOUND CARE WITH ANY CHANGES. DISCUSSED WITH KHANG
[2018-08-28 19:21] VITALS: BP 97/44
--- NOTE | 2018-08-29 05:26 | NUR ---
Assumed pt care at 1900, reassessment complete at start of shift, see [facility]. Pt A&Ox3 with some short term memory loss. Extensive assist x1 staff with walker to bathroom, incont bladder, pericare provided. Q2turn and reposition in bed throughout NOC as needed. Pt denies pain, denies SOA or difficulty breathing. Pt had visitors in late evening. Pt currently resting in bed, call light within reach, bed alarm on, will continue to be monitored.
[2018-08-29 05:28] LABS: CALCIUM 8.7 mg/dL (8.5-10.1); MAGNESIUM 2.2 mg/dL (1.8-2.4); POTASSIUM 3.4 mmol/L (3.5-5.1)
[2018-08-29 05:39] LABS: BASOPHILS 0.4 % (0.0-2.0); EOSINOPHILS 0.5 % (0.0-3.0); HEMATOCRIT 23.9 % (37.0-47.0); HEMOGLOBIN 7.3 gm/dL (12.0-15.0); LYMPHOCYTES 12.1 % (24.0-44.0); MCH 20.2 pg (26.0-34.0); MCHC 30.6 g/dL (28.0-37.0); MCV 66.1 fL (80.0-100.0); MONOCYTES 8.6 % (1.0-8.0); PLATELET COUNT 338 thou/uL (150-400); POLYS 78.4 % (36.0-66.0); RBC 3.62 mil/uL (4.20-5.00); RDW 24.6 % (10.5-14.5); WBC 12.7 thou/uL (4.0-11.0)
[2018-08-29 08:37] VITALS: BP 111/61
--- NOTE | 2018-08-29 11:44 | NUR ---
ASSUMED CARES AT 0700. REPORTS SLEPT GOOD. PT AWAKE, ALERT AND ORIENTEDX4 BUT FORGETFUL. DENIES PAIN AROUND HER TAILBONE/SACRAL REGION, REDNESS AND SHEARING APPLIED BARRIER CREAM. PT ENCOURAGE TO SLEEP ON HER SIDE AND CHANGE POSITIONS Q2H, PT ABLE TO TURN HERSELF. AMBULATES WELL WITH STAFF. VITALS REMAIN STABLE ON RA. PT CONTINUES TO HAVE BLE EDEMA (1+), ROMELIA HOSE IS ON. LASIX ADMINISTERED DAILY NOW. POTASSIUM LOW THIS AM, REPLACED. ENCOURAGED PT TO EAT BANANA DAILY. ORDERED BANANA PER LUNCH. GI DOCTOR CONTINUE TO FOLLOW UP WITH LOW HGB, HGB 7.3. NO NEED OF OCCULT STOOL PER GI. PLANS FOR REPEAT EGD IF HGB CONTINUE TO DROP. ABDOMEN SOFT AND FLAT, BS ACTIVE *4, LAST BM WAS YESTERDAY, SHE SAID IT LOOSE. PT ALSO ON ABT FOR H.PYLORI. OBTAINED ORDER TO DC COLACE AND SENOKOTE FROM GI. PT UP WITH 1 PERSON MIN ASSIST AND TOLERATED WELL. Q1H VISUAL CHECKS. CALL LIGHT WITHIN REACH. FALL PRECAUTIONS IN PLACE. PT TOLERATE WITH THERAPY.WILL CONTINUE TO MONITOR.
--- NOTE | 2018-08-29 12:20 | NUR ---
team meeting, recommendation : dc with home health ( pt, ot, st, nursing, bath aid and sw), use of shower chair, frequent checks, needs to be on main level rt unable to do stairs rt knee weakness. family to assist with medication and bills. pt will need assist with lower ext bathing and adl's lower ext. therapy to set up family training. will cont following as needed for dc needs.
--- NOTE | 2018-08-29 16:20 | NUR ---
FAXED REFERRAL TO [facility]. LEFT MSG WITH VIC IN ADM. THAT REFERRAL FAXED. ANTICIPATE DC 09/03. LEFT MSG FOR VIC TO CALL MADELEINE POLLOCK WHEN REFERRAL RECEIVED. DCP TO FOLLOW.
--- NOTE | 2018-08-29 16:31 | NUR ---
FAXED REFERRAL TO [facility] SPOKE WITH JOAN IN ADM. HE RECEIVED REFERRAL. ANTICIPATE DC 09/03. DCP TO FOLLOW.
--- NOTE | 2018-08-29 16:34 | NUR ---
FAXED REFERRAL TO [facility] LEFT MS WITH WAI IN ADM. OF REFERRAL FAXED AND ANTICIPATE DC 09/03. DCP TO FOLLOW.
[2018-08-29 20:30] VITALS: BP 139/70
--- NOTE | 2018-08-30 03:07 | NUR ---
assumed care at approx 1900 evening 08/29. pt lying in bed with head of bed elevated. pt pleasant and cooperative, denies complaints. pt took hs meds with water tolerating well. pt appears to be sleeping soundly with hourly rounding checks. bed alarm on and call light in reach. will continue to monitor.
[2018-08-30 10:12] VITALS: BP 121/66
--- NOTE | 2018-08-30 12:34 | NUR ---
FAXED REFERRAL TO [facility] LEFT [facility] WITH SALEEM IN ADM. THAT REFERRAL FAXED AND TO REVIEW. DCP TO FOLLOW.
--- NOTE | 2018-08-30 12:59 | NUR ---
cm received x 2 phone calls from jennifer rt ranp, " would like to send her to ltc at [facility], i spoke with them. we told hai as well"/jennifer. thor team to send referral to [facility]. cm called spoke with admitting at [facility] to clarify snf vs ltc vs al " i thought she would be coming to skilled rehab and then transition if needed"/erika/[facility]. thor notified 5n team of change to dcp. thor received another phone call from cristy noel " spoke with [facility] and that is her 2nd choice and she had [place] medicaid and want to speak with someone about getting her [place] medicaid."/cristy. thor team to send referral [facility]. will cont following as needed for dc needs. dcp snf
--- NOTE | 2018-08-30 15:50 | NUR ---
ASSUMED CARE OF PT AT 0715. PT IS A&OX4. WITH MOMENTS OF CONFUSION & FORGETFULNESS. IS STABLE. IS ON ROOM AIR. IS UP WITH 1 ASSIT, GB, WALKER. FALL PRECAUTIONS & HOURLY ROUNDING MAINTAINED. DENIES PAIN. HAS BILAT LE EDEMA. ROMELIA HOSE IN PLACE. LABS & VITALS REVIEWED. NIECE AT BEDSIDE AT THIS TIME. CALL LIGHT WITHIN REACH. WILL CONTINUE TO MONITOR.
--- NOTE | 2018-08-30 16:25 | NUR ---
FAXED REFERRAL TO [facility]. SPOKE WITH DEB IN ADM. AND SHE RECEIVED REFERRAL AND WILL REVIEW. DCP TO FOLLOW.
--- NOTE | 2018-08-30 17:39 | NUR ---
PATIENT'S NIECE, MORIAH VARELA, REQUESTED TO SPEAK TO THE CHARGE NURSE FOR 5N. UPON MEETING WITH MORIAH, RECIEVED UPDATE REGARDING HOME SITUATION FOLLOWS PER MORIAH'S REPORT: PATIENT LIVES WITH A SISTER WHO IS IN NEED OF CARE HERSELF. PT'S NIECE WORKS FULL-TIME AND THERE IS NO OTHER FAMILY AVAILABLE TO PROVIDE FREQUENT CHECKS. HOME HAS 3 FLIGHTS OF STAIRS WITHIN AND MANY STEPS TO ENTER. THERE IS NO FEASIBLE WAY TO MOVE THE PATIENT TO THE 1ST FLOOR. ALL NEEDS WILL NOT BE ON ONE LEVEL RECOMMENDED BY THE TEAM. ALSO, PT WILL NOT HAVE FREQUENT CHECKS. NIECE STATED THAT SHE DOESN'T THINK DC TO HOME IS SAFE, AND REQUESTED REFERRALS TO BE SENT TO SNF FACILITIES PREVIOUSLY DISCUSSED WITH EMILY POLLOCK. SHE STATED THAT SHE WANTS TO BE SURE THAT A REFERRAL WAS FAXED TO [facility], THIS IS ONLY MINUTES FROM THEIR HOME. MORIAH CALLED THAT FACILITY AND THEY STATED THAT THEY HAD NOT RECEIVED THE FAX YET. DISCUSSED WITH EMILY AND VERIFIED FAX NUMBER WITH THE FACILITY WELL WITH OUR CM DEPT AND LATER NOTED THAT THE REFERRAL WAS SENT AND THE FACILITY WAS CALLED TO VERIFY THAT THEY RECEIVED IT. THIS INFORMATION WAS PASSED BACK TO MORIAH, WHO VERBALIZED SATISFACTION. MORIAH ALSO ASKED IF PT CAN BE DC/D EARLIER THAN TUESDAY, POSSIBLY ON TUESDAY AFTER 6PM, OR ON THE WEEKEND, BUT NOT ON TUESDAY, SHE HAS SOMETHING ELSE GOING ON THAT DAY. VERIFIED WITH DR. RIDDLE WHO STATED THAT IF PT IS MEDICALLY STABLE TO DC ON TUESDAY, 09/01, HE IS AMENABLE TO THIS. THIS WAS ALSO COMMUNICATED TO MORIAH AND EMILY QUIÑONEZ.
[2018-08-30 19:30] VITALS: BP 127/38
--- NOTE | 2018-08-31 00:37 | NUR ---
PT ALERT AND ORIENTED X 4, FORGETFUL. CONFUSED AT TIMES. TRANSFERRED TO BED AT WITH MAX ASSIST X 2. TURNED Q2H. PT DENIES PAIN OR DISCOMFORT. BED ALARM ON FOR SAFETY. PT CHECKED ON HOURLY ROUNDS.
[2018-08-31 04:39] LABS: HEMATOCRIT 21.5 % (37.0-47.0); HEMOGLOBIN 6.7 gm/dL (12.0-15.0); MCH 20.5 pg (26.0-34.0); MCHC 31.3 g/dL (28.0-37.0); MCV 65.5 fL (80.0-100.0); RBC 3.28 mil/uL (4.20-5.00); RDW 24.5 % (10.5-14.5); WBC 11.3 thou/uL (4.0-11.0)
[2018-08-31 08:15] LABS: CALCIUM 8.3 mg/dL (8.5-10.1); MAGNESIUM 1.9 mg/dL (1.8-2.4)
[2018-08-31 09:23] VITALS: BP 109/38
--- NOTE | 2018-08-31 11:53 | NUR ---
cm team notified that pt has been accepted [facility] and able to take on . cm called sadie muniz, " oh she is not getting blood tranfusion. i am on my way up there right now. she does not need that now. the communication is not right, with all meets you as you all have. were is communication? "/sadie. unable to educate rt sadie hung up on cm via phone call. cm called back and no answer. thor went and spoke with yahir johansen staffing operations manager, and input output clerk and bedside nurse. pt has not received blood transfusion rt hgb lower than 7 and blood noted per nursing staff. will cont following as needed for dc needs.
--- NOTE | 2018-08-31 13:10 | NUR ---
ASSUMED CARE AT 0700. PATIENT IS ALERT AND ORIENTED X3. PATIENT IS FORGETFUL AT TIMES. PATIENT JAMES'S, SPREADING MACHINE OPERATOR ARE EQUAL. LUNGS ARE CLEAR. ABD IS SOFT WITH BSX4. PATIENT H/H 6.7/21.5. INFORMATION TECHNOLOGY ACCOUNT MANAGER NOTIFIED. INFORMATION TECHNOLOGY ACCOUNT MANAGER NOTIFIED G.I. INFORMATION TECHNOLOGY ACCOUNT MANAGER WHO IS HERE SEEING THE PATIENT. PATIENT WAS MADE NPO FOR POSSIBLE SCOPE LATER TODAY AROUND 2PM. PATIENT IS BEING TYPED FOR 1 UNIT OF BLOOD. PATIENT IV STARTED BY IV TEAM WITH 22 GA JELCO IN THE LEFT FORARM. PATIENT TOLERATED PROCEDURE WELL. UP IN CHAIR FOR BREAKFAST. FALL AND SAFETY PROTOCOLS IN PLACE. DENIES ANY PAIN AT THIS TIME. CONTINUES TO PROGRESS TOWARDS D/C GOALS. WILL D/C TO [facility] SKILLED. WILL CONTINUE TO MONITER.
--- NOTE | 2018-08-31 13:18 | NUR ---
PATIENT'S NIECE MORIAH VAUGHN) MET AT BEDSIDE WITH DR. CROW AND HER SALES ASSOCIATE ELVA REGARDING CONCERNS ABOUT BLOOD TRANSFUSION AND FURTHER ENDOCSOPY PLANS. PER DR. CROW, PT IS ASYMPTOMATIC AND HEMODYNAMICALLY STABLE, AND WILL BE OK TO DC TOMORROW TO SNF PLANNED IF THE SKILLED FACILITY WILL CHECK HGB WEEKLY AND MONITOR THE PT CLOSELY FOR SX OF ANEMIA. EDUCATED PT AND HER NEICE ABOUT THE NEED TO TAKE HER IRON PILLS WITH ORANGE JUICE, THE NEED FOR GOOD NUTRITION AND ADEQUATE INTAKE OF PROTEIN AND IRON-RICH FOODS, SIGNS/SX OF ANEMIA THAT IS NO LONGER TOLERATED (SOA, DIZZINESS, WEAKNESS), AND THE NEED FOR HER TO PROTECT HER SKIN BY REPOSITIONING EVERY 30 MINUTES WHILE IN A CHAIR AND EVERY 2 HOURS WHEN IN BED. EDUCATION ALSO GIVEN REGARDING THE NEED FOR FURTHER FOLLOW UP IN 2-3 MONTHS WITH ANOTHER SCOPE TO EVALUATE HEALING OF THE ULCER THAT SHE HAS. PT AND HER NIECE MENDOZA BOTH VERBALIZED UNDERSTANDING.
--- NOTE | 2018-08-31 13:18 | NUR ---
Isac POLLOCK FROM STAFF ANESTHETIST INFORMED THIS WEB ENGINEER THAT THE NIECE WHO IS THE DPOA IS ON HER WAY UP. I WAS ALSO INFORMED "NO BLOOD IS TO BE GIVEN" DR. CROW AND ELVA GIL MARINE STRUCTURAL WELDER HERE TO VISIT WITH THE NIECE. AFTER THE VISIT. THE BLOOD TRANSFUSION WAS DC'D. NPO WAS DC'D. PATIENT WAS SERVED LUNCH AND HER MEDS WERE RESUMED. THE ORDER FOR POSSIBLE LOWER G.I. SCOPE WAS ALSO DC'D. THE PATIENT'S HGB IS 6.7 AND THE NIECE WAS INFORMED OF THIS. THE NIECE STATED " PETER IS BEING D/C'D TOMMARROW TO [facility]. " DR. CROW STATED" THE PATIENT WILL NEED A WEEKLY CBC WHILE SKILLED AT [facility]. THIS WILL BE PASSED ON TO THE NIGHT NURSE, SO THIS ORDER CAN BE PUT ON THE D/C PAPERWORK. WILL CONTINUE TO MONITER.
[2018-08-31 20:02] VITALS: BP 132/53
--- NOTE | 2018-09-01 00:31 | NUR ---
PT ALERT AND ORIENTED X 4, FORGETFUL. CONFUSED AT TIMES. INCONT OF URINE. COCCYX REDDENED. BARRIER CREAM APPLIED. TURNED Q2H. NO STOOLS SO FAR TONIGHT. PT DENIES PAIN OR DISCOMFORT. BED ALARM ON FOR SAFETY. PT CHECKED ON HOURLY ROUNDS. FAMILY MEMBER HERE DURING THE NIGHT.
[2018-09-01 07:45] VITALS: BP 115/58
[2018-09-01 08:15] VITALS: BP 136/65
[2018-09-01] MEDS ORDERED: CLARITHROMYCIN250 M2 PO (09:45)
[2018-09-01] MEDS ORDERED: REMERON15 MG PO (09:45)
[2018-09-01] MEDS ORDERED: AMOXICILLIN 50500 MG PO (09:45)
[2018-09-01] MEDS ORDERED: LASIX 20 MG TAB20 MG PO (09:45)
[2018-09-01] MEDS ORDERED: PROTONIX40 M1 PO ×2 (09:45→12:44)
[2018-09-01] MEDS ORDERED: CARAFATE 1 GM TA1 G1 PO (09:45)
[2018-09-01] MEDS ORDERED: FOLIC ACID1 MG PO (09:45)
[2018-09-01] MEDS ORDERED: POTASSIUM20 PO (09:45)
--- NOTE | 2018-09-01 10:15 | NUR ---
cm visit with niece sadie, pt sister and hai at bedside. intro cm face to face per family request. pt/sadie requested medical records. cm passed on to bedside nurse " i have requested this one already through her nurse, so this is the 2nd requested. i know transport is set for 1400 cm already called me"/sadie. information on visit passed on to bedside nurse.
--- NOTE | 2018-09-01 10:20 | NUR ---
PT. DISCHARGING TODAY TO [facility]. FAXED DC ORDERS/SUMMARY TO FACILITY AND SPOKE WITH JOAN IN ADM. HE RECEIVED DC ORDERS AND SET UP TRANSPORTATION VIA [facility] AT 1400. DCP NOTIFIED SD (MENDOZA) OF DISCHARGE AND TIME OF TRANSPORTATION. UNIT NOTIFIED AND CHART COPY PER US. RN TO CALL REPORT TO [phone].
--- NOTE | 2018-09-01 13:16 | NUR ---
ASSUMED CARE AT 0700. PATIENT IS ALERT AND ORIENTED X3. PATIENT IS FORGETFUL AT TIMES. PATIENT JAMES'S, DYNAMICS AX TECHNICAL ARCHITECT ARE EQUAL. LUNGS ARE CLEAR. ABD IS SOFT WITH BSX4, HAD BM TODAY PER RESOURCE TEACHER, NOT COLLECT FOR OCCULT STOOL SINCE PT LEAVE TODAY. PATIENT H/H 6.7 ON Aug. PT IS ASYMPTOMTIC. NIECE (DPOA) REFUSED BLOOD TRANSFUSE AND WANTS PT TO BE DISCHARGE TODAY. CARE- TEAM TALKED TO PT'S SD AND DISCUSSED WITH HER ABOUT THE BENEFITS OF BLOOD TRANSFUSION AND REQUESTS IV TO BE REMOVED. IV OUT NOW. EDUCATED PT AND FAMILY ABOUT S&S OF LOW HGB AND CONTINUE TO FOLLOW UP AT SKILL FACILITY. CHART COPY FAXED TO SKILL [facility].CALLED AND GAVE REPORT TO ADAN TAXI DRIVER NURSE AT [facility] ABOUT HGB ISSUES AND FOLLOW UP WITH GI, AND ASK HER TO CONTINUE TO FOLLOW UP PT'S HGB, FOLLOW UP WITH GI APPOINTMENT. MONITOR LASIX FOR LEGS EDEMA AND CONTINUE WITH ABT TX FOR NONBLEEDING GASTRIC ULCER WITH H.PYLORIS. ADAN HAS NO QUESTIONS OR CONCERN AT HIS MOMENT.TRANSPORATION WILL PICK PT UP AROUND 1400. PT UP IN WC. ATE BREAKFAST AND LUNCH. DENIES PAIN, SOB, N/V. FAMILY GATHERED ALL BELONGINGS. REASSESSMENT PER CHART. WOUND ON BOTTOM HEALED. NO PICTURE TAKEN. MEDS SIDE EFFECT AND CHART COPY GIVE TO BALJ[facility] PER HER REQUEST. ANSWERS AND CONCERNS WERE ADDRESSED. NIECE EXPRESSED HER APPRECIATION ABOUT INFORMATION PROVIDED. FALL AND SAFETY PROTOCOLS IN PLACE. DENIES ANY PAIN AT THIS TIME. FALL PRECAUTION IN PLACE. PT'S SISTER IS AT BEDSIDE. WILL CONTINUE TO MONITOR.
[2018-09-04 17:10] LABS: HGB SOLUBILITY Negative (Negative)
--- NOTE | 2018-09-05 09:03 | H ---
[facility] [place] [address] HISTORY AND PHYSICAL Name: PETER VARELA Room #: 505-P [facility] M.R.#: [id number] Admission: 08/22/18 Attend Phys: Frank Garcia MD Discharge: 09/01/18 Date of : 33 Report #: [id number] THIS REPORT FOR: //name// CC: Frank Garcia [facility] physician/PCP DATE OF SERVICE: 08/22/2018 HISTORY AND PHYSICAL AND POST-ADMISSION PHYSICIAN EVALUATION HISTORY OF PRESENT ILLNESS: The patient is an 82-year-old female originally admitted on 08/16/2018 to [facility] with weakness. She was evaluated by GI and underwent EGD, which showed nonbleeding ulcers and likely source of iron deficiency anemia. She has had weight loss over the past several months and change in mood with mental status changes, cognitive impairment, delirium versus depression versus dementia. She is felt to have an encephalopathy, which appears to be multifactorial. During her hospitalization, she also was noted to have multiple pulmonary nodules, suspect a granulomatous process not thought to be the source for the patient's weight loss. Recommendations are for a CT of the chest in 6-8 weeks. She also had a small pleural effusion and underwent a thoracentesis diagnostic yesterday. She does have anorexia, decreased p.o. intake with protein-calorie malnutrition and we have been encouraging p.o. intake. GI is recommending a repeat EGD in 2-3 months to assess for healing and a colonoscopy in 3 years. She is on a PPI with Carafate. Speech therapy has noted [id number] cognitive deficits with the noted encephalopathy as above. She has not been admitted for acute in-hospital inpatient rehabilitation. She has had a significant functional decline from her premorbid level. PAST MEDICAL HISTORY: Includes hypertension, iron deficiency anemia, peptic ulcer disease. PAST SURGICAL HISTORY: Includes cataract surgery. ALLERGIES: No known drug allergies. MEDICATIONS: Please see the full medication listing. This includes vitamins, herbals, and supplements and [id number] as per report. HABITS: No history of alcohol or drug abuse are noted, nonsmoker. SOCIAL HISTORY: She lives with a sister and a niece in a house, 10 entry stairs, 12 stairs inside to second floor bedroom and bathroom. She did utilize a single point cane and was driving. REVIEW OF SYSTEMS: Did not offer any current complaints of chest pain, [facility] [address] [place] [address] HISTORY AND PHYSICAL Name: PETER VARELA Room #: 505-P [facility] IN .R.#: [id number] Admission: 08/22/18 Attend Phys: Frank Garcia MD Discharge: 09/01/18 Date of : 34 Report #: [id number] shortness of breath or abdominal discomfort. No complaints of extremity pain complaints. No complaints of overall weakness. PHYSICAL EXAMINATION: GENERAL: She is a pleasant 82-year-old -[place] female in no obvious distress. VITAL SIGNS: Last recorded temperature is 100, pulse 66, respirations 20, blood pressure 145/41. She is alert, pleasant. HEENT: Appeared to be benign. There is a latency to her responses. She tends to be somewhat concrete in her focus. Noted to have decreased immediate recall, although was oriented to person, time and reason. CHEST: Sounded overall clear to auscultation. CARDIOVASCULAR: Regular rate and rhythm. ABDOMEN: She is thin. Bowel sounds positive, nontender. GENITOURINARY AND RECTAL: Deferred. NEUROLOGIC: She has functional range of motion of both upper extremities with strength of grade 4-/5. DTRs are trace to 1. Lower extremities functional range of motion, strength is grade 4-/5, DTRs are trace to 1. No focal calf swelling. Functionally, she has been min assist with sit to stand transfers and has ambulated a short distance with mod assist with a front-wheeled walker. ASSESSMENT: An 82-year-old female with the following problem list: 1. Multifactorial encephalopathy. 2. Nonbleeding necrotic gastric ulcers. 3. Pleural effusion, status post diagnostic thoracentesis. 4. Medical complexity with generalized debilitation. 5. Severe protein calorie malnutrition. 6. Pulmonary nodules with noted granulation. 7. Iron deficiency anemia. 8. Hypertension. 9. Depression and/or dementia. PLAN: The patient is admitted for acute in-hospital inpatient rehabilitation. From a postadmission physician evaluation perspective, there are no relevant changes since the preadmission screening. Please see the above review of prior and current medical and functional conditions and comorbidities. Please see the patient's previous and current functional status. As far as risk of complications, the patient has multiple medical comorbidities as noted above. Initial plan of care involves the interdisciplinary acute inpatient rehabilitation program with the goal of maximizing the patient's functional independence so that she can hopefully return back to her prior living situation. Measurable functional goals would be for the patient to become modified independent with transfers, mobility, ADLs and cognition, so that she can return back to her prior living situation. Prognosis is reasonably good with estimated length of stay probably at least 10 days to 2 weeks. Potential barriers would include the patient's multiple medical comorbidities and [facility] [address] [place] [address] HISTORY AND PHYSICAL Name: PETER VARELA Room #: 505-P [facility] IN M.R.#: [id number] Admission: 08/22/18 Attend Phys: Frank Garcia MD Discharge: 09/01/18 Date of : 34 Report #: [id number] decreased functional status. The patient meets diagnostic criteria for an acute in-hospital inpatient rehabilitation stay. We will have neuropsychology see her with her cognitive deficits as well as speech therapy with her noted encephalopathy. She does meet the medical necessity criteria and we will have the multiple analytical consultant physicians continue to follow. She will need to have the outpatient followups with the EGD, eventual colonoscopy. Pulmonary Medicine recommendations with followup CT of the chest, all as noted above. She does have the tolerance for therapies and has appropriate discharge goals back to the home setting. <ELECTRONICALLY SIGNED> By: Frank Garcia MD 09/05/18 [id number] Frank Garcia MD /[facility]
--- NOTE | 2018-09-05 09:03 | PLAN ---
[facility] [place] [address] REHAB UNIT PLAN OF CARE Name: PETER VARELA Room #: 505-P [facility] IN M.R.#: [id number] Admission: 08/22/18 Attend Phys: Frank Garcia MD Discharge: 09/01/18 Date of : 33 Report #: [id number] THIS REPORT FOR: //name// CC: Frank Garcia [facility] physician/PCP DATE OF SERVICE: 08/25/2018 PROGNOSIS/OVERALL PLAN OF CARE SUBJECTIVE: The patient is seen back today in followup. She is in no distress. Last recorded temperature 37.3, pulse 74, respirations 18, blood pressure 119/56. She is working in therapies with transfers, min assist. Gait min assist 115 feet front-wheeled walker. She is mod assist to go up and down four stairs. In occupational therapy, lower body dressing is mod assist. Speech therapy, she has moderate cognitive deficits. ASSESSMENT: 1. Multifactorial encephalopathy. 2. Nonbleeding necrotic gastric ulcers. 3. Pleural effusion, status post diagnostic thoracentesis. 4. Medical complexity with generalized debilitation. 5. Severe protein calorie malnutrition. 6. Pulmonary nodules with noted granulation. 7. Iron deficiency anemia. 8. Hypertension. 9. Depression and/or dementia. PLAN: The overall plan of care is based on the preadmission screen, post-admission physician evaluation and information garnered from therapy assessments. 1. Estimated length of stay is probably at least 10 days to 2 weeks. 2. Medical prognosis is reasonably good for rehabilitation. 3. Anticipated interventions includes the interdisciplinary acute inpatient rehabilitation program with PT, OT and speech, rehabilitation nursing involved for medication management, skin care prophylaxis, bowel and bladder issues and nursing education. Case management is involved as well as the consulting physicians and the rest of the interdisciplinary acute rehabilitation team. 4. Anticipated functional outcomes would be for her to become modified independent with mobility and ADLs at least at a walker level if not the cane level as well as improvement as far as cognition, so that she can return back to the home setting. 5. Discharge destination would be back home with her sister and niece. 6. Expected therapy by discipline includes PT, OT and speech 1 hour per day [address] [address] REHAB UNIT PLAN OF CARE Name: PETER VARELA Room #: 505-P DIS IN .R.#: [id number] Admission: 08/22/18 Attend Phys: Frank Garcia MD Discharge: 09/01/18 Date of : 34 Report #: [id number] each five days a week throughout the duration of the acute inpatient rehabilitation stay. <ELECTRONICALLY SIGNED> By: Frank Garcia MD 09/05/18 0903 [id number] Frank Garcia MD /nt
== END 2018-09-01 14:26 | DRG 70 ==
PROVIDERS: Nurse Practitioner; Nurse Practitioner Family; ADMIT Physical Medicine & Rehabilitation
PROC: 0HBRXZZ Excision of Toe Nail, External Approach (ICD-10-PCS; principal; 2018-08-22)
DX: G93.49 Other encephalopathy (principal); K25.4 Chronic or unspecified gastric ulcer with hemorrhage; E43 Unspecified severe protein-calorie malnutrition; J90 Pleural effusion, not elsewhere classified; D62 Acute posthemorrhagic anemia; Z68.1 Body mass index [BMI] 19.9 or less, adult; R53.81 Other malaise; R91.1 Solitary pulmonary nodule; D50.9 Iron deficiency anemia, unspecified; I10 Essential (primary) hypertension; F32.9 Major depressive disorder, single episode, unspecified; F03.90 Unspecified dementia, unspecified severity, without behavioral disturbance, psychotic disturbance, mood disturbance, and anxiety; E87.6 Hypokalemia; H40.9 Unspecified glaucoma; K63.5 Polyp of colon; E86.0 Dehydration; L60.3 Nail dystrophy; M62.84 Sarcopenia; E83.42 Hypomagnesemia; D52.9 Folate deficiency anemia, unspecified; K59.00 Constipation, unspecified; K57.90 Diverticulosis of intestine, part unspecified, without perforation or abscess without bleeding; K64.8 Other hemorrhoids; R13.10 Dysphagia, unspecified; L89.899 Pressure ulcer of other site, unspecified stage; Z87.11 Personal history of peptic ulcer disease; Z98.41 Cataract extraction status, right eye; Z98.42 Cataract extraction status, left eye
CPT/HCPCS: 10112